=== PATIENT | male | born 1950 | race Caucasian/White ===

== ENCOUNTER 2018-11-04 08:11 | Day surgery (SDC) | payer OTHER, SELFPAY ==
[2018-11-04] VITALS (7 sets, daily range): BP systolic 139–160; BP diastolic 79–94; PULSE 54–72; RESP 13–21; TEMP 36.3–36.6; O2SAT 97–99
[2018-11-04] MEDS: Lactated Ringers 1,000 ML 80 ML IV (09:30)
[2018-11-04] MEDS: Omnipaque 300 MG/ML 50 ML BTL (10:57)
[2018-11-04] MEDS: Lidocaine 2% Jelly 6 ML SYR (10:57)
--- NOTE | 2018-11-04 10:59 | DI.RAD_ITS ---
SYMPTOM/DIAGNOSIS: STONES RETROGRADE IN O.R.: Fluoroscopy Time: 61.2 sec, 23.14 mGy. Fluoroscopy was utilized by Dr. Bender during retrograde evaluation of the renal collecting system. Please refer to the procedure report for complete details.
--- NOTE | 2018-11-04 11:00 | W.PM.DSUDISC ---
Discharge Plan Disposition Patient Disposition: HOME Condition: Stable Discharge Details Reason For Visit: (R) KIDNEY STONE Attending Provider: Keyon Bender Primary Care Provider: Liang Galindo Discharge Instructions Additional Instructions: Jacques to gravity - may remove prior to discharge if urine remains transparent If urine still dark, discharge with jacques to leg bag. catheter can be removed (either at home or in my office) in 1 to 2 days Followup appt with me @ 6 months with renal US Stand Alone Forms: Adolfo Taylor (DSU) Activity:: Activity as Tolerated Diet:: As Tolerated Discharge Orders Discharge Orders: Discharge Order (Routine); Ordered 11/04/18 Ordered By: Keyon Bender DS: Diagnosis Discharge Diagnosis (1) Right kidney stone: Status: Acute
[2018-11-04] MEDS: traMADol 50 MG TAB PO (13:03)
--- NOTE | 2018-11-04 14:43 | ROE_ITS ---
DATE OF PROCEDURE: November 04, 2018 PREOPERATIVE DIAGNOSIS: 1. Right kidney stones. 2. Recurrent urinary tract infection. POSTOPERATIVE DIAGNOSIS: Same. PROCEDURE: Cystoscopy with bilateral retrograde pyelogram. SURGEON: Keyon Bender M.D. ANESTHESIA: General. COMPLICATIONS: None. ESTIMATED BLOOD LOSS: Minimal. HISTORY: This is a 68-year-old gentleman who has a history of urinary retention. He had undergone a transurethral resection of the prostate previously. He is a long distance owner operator tanker truck driver and he had an episode of urosepsis while he was traveling in [place]. He required a weeks' worth of IV antibiotics. He reportedly had a CT scan that showed a 2 mm stone in the lower pole of the right kidney. I did not actually have access to the films. He p resents now for a cystoscopy with retrograde pyelogram to complete the remainder of his UTI workup. OPERATIVE REPORT: The patient was brought to the Operating Room on 11/04/18. After successful induc tion of general anesthesia, he was placed in the dorsal lithotomy position. His genitalia was preppe d and draped. A 22 Nepalese rigid cystoscope was passed through the urethra into the bladder. The urethra and bladde r were inspected with the 30-degree lens. The pendulous, bulbous and membranous urethras all appeared normal with no strictures. The prostatic urethra appeared well resected, although there was some inflammatory tissue toward the bladder neck at approximately the ten o'clock position. The bladder neck was entered and the bladder mucosa was inspected. Both ureteral orifices were ident ified. Each orifice was cannulated with a 6 Nepalese access catheter and retrograde films were obtaine d. There was distal J-hooking of each of the ureters, but no filling defects were seen in the ureters or collecting systems. Both sides drained promptly on a five minute drainage film. I initially attempted to pass a wire up the right ureter, but the wire became coiled in the distal ur eter and would not advance further. With no obvious filling defect on the retrograde film, we decide d against proceeding with ureteroscopy. We then inspected the remainder of the bladder using both a 30 and a 70-degree lens. No papillary or nodular lesions were identified. At the completion of the procedure there did appear to be some bleeding from the prostatic urethra. We filled the bladder with irrigant and removed the cystoscope. We then passed a 16 Nepalese Harding cat heter through the urethra into the bladder. The catheter balloon was inflated with 10 cc's of steril e water and the catheter was hooked to gravity drainage. The catheter will be removed either later t claudia or within 48 hours, whenever the urine clears. cc: Liang Galindo M.D.
== END 2018-11-04 13:38 | disposition home or self-care (01) ==
PROVIDERS: PCP Family Medicine; Visit Provider Urology
PROC: (CPT 74450; principal; 2018-11-04 10:00)
DX: N20.0 Calculus of kidney (principal); Z90.79 Acquired absence of other genital organ(s)
CPT/HCPCS: 52005; 74420; J0696; J1100; J1885; J2250; J2405; Q9967